=== PATIENT | male | born 1970 | race Two or more races ===

== ENCOUNTER 2016-12-01 08:25 | Day surgery (SDC) | payer OTHER ==
[~2016-12-01 08:25] MED LIST: FENTANYL 250 MCG/5 ML AMP IV PRN; LACTATED RINGERS 1,000 ML IV SCH; MIDAZOLAM HCL 5 MG/5 ML VIAL IV PRN
[2016-12-01] MEDS ORDERED: LACTATED RINGERS 1,000 ML ONE (08:58)
[2016-12-01] MEDS ORDERED: IV START KIT ONE (08:58)
[2016-12-01] MEDS ORDERED: FENTANYL 5 ML ONE (09:24)
[2016-12-01] MEDS ORDERED: MIDAZOLAM HCL 5 MG/5 ML VIAL ONE (09:24)
--- NOTE | 2016-12-04 12:24 | SURGPATH ---
[facility] [address] [place] [id number] Patient Name: ANY SANFORD MR#: [id number] : 1970 Gender: M Specimen #: [id number] Collected: 12/01/2016 Received: 12/03/2016 Reported: 12/04/2016 Submitting Phys: GURPREET MYERS Copy To Phys: [facility] GIGNAYELI WALTER Clinical History / Pre-Operative Diagnosis: ABNORMAL CT SCAN; LLQ PAIN; RULE OUT COLITIS Specimen Source / Surgical Procedure Performed: Sigmoid biopsy at 30 cm Interpretation: SIGMOID BIOPSY AT 30 CM: - NO SIGNIFICANT PATHOLOGIC ABNORMALITIES IDENTIFIED. Electronically Signed Out Lilibeth Sánchez M.D. Gross Description: The specimen is received in a formalin filled container labeled with the patient's name and "sigmoid biopsy at 30 cm". Two graf biopsies are 0.3 and 0.4 cm. Totally embedded in one cassette. Kimberli Campos Microscopic Description: Sections of the sigmoid colon biopsy at 30 cm show fragments of benign colonic mucosa with no significant pathologic changes. 1: [id number] R10.32
== END 2016-12-01 10:55 | disposition home or self-care (01) ==
LOC: SDC 08:25
PROVIDERS: ATTEND Internal Medicine Gastroenterology
PROC: 0DBN8ZX Excision of Sigmoid Colon, Via Natural or Artificial Opening Endoscopic, Diagnostic (ICD-10-PCS; principal; 2016-12-01)
DX: K50.10 Crohn's disease of large intestine without complications (principal); G47.00 Insomnia, unspecified
CPT/HCPCS: 45380; J3010; J2250; J7120